=== PATIENT | female | born 1990 | race Two or more races ===

== ENCOUNTER 2016-08-25 10:41 | Emergency (ER) | payer OTHER ==
[~2016-08-25] VITALS: Ht 157.5 cm; Wt 49.9 kg
[2016-08-25 10:56] VITALS: BP 109/68
--- NOTE | 2016-08-25 11:07 | Emergency Room Report ---
History of Present Illness General Chief Complaint: Laceration Source: Patient Present Illness HPI sliced off piece of L thumb carrying out trash last night. Urgent care dressed , but still with bleeding today. Also with pain 6/10 - sharp. No numbness Last tet 7 years. 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 Last Menstrual Period: 07/26/16 Reviewed Nursing Documentation: PMH: Agreed, PSxH: Agreed Nursing Documentation-PMH Past Medical History: No Stated History Review of Systems Constitutional: Denies: fever Musculoskeletal: Reports: see HPI Skin: Reports: see HPI Psychiatric: Reports: anxiety Neurological: Denies: numbness, paresthesia Hematologic/Lymphatic: Reports: see HPI Physical Exam Vital Signs Date Time Temp Pulse Resp B/P Pulse Ox O2 Delivery O2 Flow Rate FiO2 08/25/16 10:45 98.1 71 14 109/68 100 Room Air Sp02 EP Interpretation: reviewed, normal General Appearance: well appearing, no apparent distress Head: normocephalic, atraumatic Eyes: bilateral eye PERRL ENT: hearing grossly normal, normal voice, moist mucus membranes Neck: full range of motion, supple Respiratory: no respiratory distress, speaking full sentences Cardiovascular #2: 2+ radial (L) - good capillary fill Musculoskeletal: normal range of motion Neurologic: alert, motor strength/tone normal, sensory intact Psychiatric: mood/affect normal Skin: other - avulsion ulnar side of thumb 1X2.5 bleeding Procedures Laceration/Wound Repair Laceration/Wound Repair : Consent: Verbal Wound Location: other - L thumb Wound's Depth, Shape: superficial, other - avulsed skin Wound Explored: clean Irrigated w/ Saline (ccs): 20 Anesthesia: 1% Lidocaine Wound Debrided: cauterized - hemostasis obtained Sterile Dressing Applied?: Yes - xeroform Splint Applied?: No - tube gauze Sling Applied?: Yes Patient Tolerated: Well Complications: None Medical Decision Making Diagnostic Impression: Primary Impression: Avulsion of skin of left thumb Qualified Codes: S61.002A - Unspecified open wound of left thumb without damage to nail, initial encounter ER Course Patient with continued bleeding avulsion of L thumb. Too wide and lack of tissue to suture. Needs cautery. Elect not to use silver nitrate. See procedure note. Tolerated well. Warned of still risk of bleed, though low. Patient stable for outpatient observation and treatment. Last Vital Signs Date Time Temp Pulse Resp B/P Pulse Ox O2 Delivery O2 Flow Rate FiO2 08/25/16 11:58 98.1 14 109/68 100 Room Air 08/25/16 10:45 71 Status: improved Disposition: HOME, SELF-CARE Condition: Improved Scripts Tramadol Hcl* (ULTRAM*) 50 Mg Tablet 50 MG ORAL Q6H Y for For Pain, #14 TAB 0 Refills Prov: Mekhi Robles M.D. 08/25/16 Mekhi Robles M.D. Aug 25, 2016 11:07
[2016-08-25] MEDS ORDERED: Lidocaine 1% MPF 10mg/ml 5ml INJ ONE (11:15)
[2016-08-25] MEDS ORDERED: TRAMADOL HCL50 MG ORAL (11:44)
[2016-08-25 11:58] VITALS: BP 109/68
== END 2016-08-25 11:58 | disposition home or self-care (01) ==
LOC: EMR 10:56
DX: S61.002A Unspecified open wound of left thumb without damage to nail, initial encounter (principal); W45.8XXA Other foreign body or object entering through skin, initial encounter; Y93.9 Activity, unspecified; Y92.9 Unspecified place or not applicable

== ENCOUNTER 2016-08-28 13:52 | Emergency (ER) | payer OTHER ==
[~2016-08-28] VITALS: Ht 157.5 cm; Wt 49.9 kg
[~2016-08-28 13:52] MED LIST: TRAMADOL HCL50 MG ORAL
[2016-08-28] MEDS ORDERED: NKM (14:23)
[2016-08-28 14:29] VITALS: BP 96/64
--- NOTE | 2016-08-28 14:45 | Emergency Room Report ---
History of Present Illness General Chief Complaint: Wound Recheck/Suture Removal Source: Patient Present Illness HPI 26-year-old female presents emergency department for wound recheck. Patient states she was seen here yesterday for laceration to the left thumb for which required cautery and medical provider instructed patient to follow up today. She denies fevers, increasing pain, erythema or continued bleeding. Patient denies taking blood thinning medications. Patient states she is up-to-date of vaccinations. She denies new trauma or fall. Patient denies numbness or tingling. Denies numbness tingling or loss of sensation or gross motor movements of the extremities, incontinence of bowel or bladder. Denies CP, Palpitations, LOC, AMS, dizziness, Changes in Vision, Sensation, paresthesias, or a sudden severe headache. Allergies: Coded Allergies: No Known Allergies (Unverified , 08/25/16) Patient History Past Medical History: see triage record Past Surgical History: none Pertinent Family History: none Last Menstrual Period: Current Now: No Immunizations: UTD Reviewed Nursing Documentation: PMH: Agreed, PSxH: Agreed Nursing Documentation-PMH Past Medical History: No Stated History Review of Systems All Other Systems: negative except mentioned in HPI Physical Exam Vital Signs Date Time Temp Pulse Resp B/P Pulse Ox O2 Delivery O2 Flow Rate FiO2 08/28/16 14:19 98.2 74 16 96/64 98 Room Air Sp02 EP Interpretation: reviewed, normal General Appearance: no apparent distress, alert, GCS 15, non-toxic Head: normocephalic, atraumatic Eyes: bilateral eye PERRL, bilateral eye normal inspection ENT: hearing grossly normal, normal pharynx, no angioedema, normal voice Neck: full range of motion, supple/symm/no masses Respiratory: lungs clear, normal breath sounds, speaking full sentences Cardiovascular #1: regular rate, rhythm, no edema, normal capillary refill Musculoskeletal: back normal, gait/station normal, normal range of motion, non- tender Neurologic: alert, oriented x3, responsive, motor strength/tone normal, sensory intact, speech normal Psychiatric: judgement/insight normal, memory normal, mood/affect normal Skin: normal color, no rash, warm/dry, well hydrated, wd healing/no infection noted - avulsion to the left thumb, no bleeding at this time., no erythema. Medical Decision Making PA Attestation Dr. sherwood is my supervising Physician whom patient management has been discussed with. Diagnostic Impression: Primary Impression: Encounter for wound re-check ER Course 26-year-old female presents emergency department for wound recheck. Patient states she was seen here yesterday for laceration to the left thumb for which required cautery and medical provider instructed patient to follow up today. She denies fevers, increasing pain, erythema or continued bleeding. Patient denies taking blood thinning medications. Patient states she is up-to-date of vaccinations. She denies new trauma or fall. Patient denies numbness or tingling. Denies numbness tingling or loss of sensation or gross motor movements of the extremities, incontinence of bowel or bladder. Denies CP, Palpitations, LOC, AMS, dizziness, Changes in Vision, Sensation, paresthesias, or a sudden severe headache. - pt. recently seen for thumb avulsion which required electrocautery. Ddx considered but are not limited to cellulitis, dehiscence, un-controlled bleeding just to name a few. Vital signs: are WNL, pt. is afebrile H&PE are most consistent with healing previously repaired cauterized thumb avulsion of the left thumb. ORDERS: none required at this time, the diagnosis is clinical ED INTERVENTIONS: -wound examined- no signs of infection, hemostasis is consistent at this time. - Bacitracin and Sterile dressing applied. d/w pt. to continue with wound care at home ( pt. given sterile supplies) and to look for signs of infection . recommended PCP follow up in 3-5 days. DISCHARGE: At this time pt. is stable for d/c to home. Will provide printed patient care instructions, and any necessary prescriptions. Care plan and follow up instructions have been discussed with the patient prior to discharge. Last Vital Signs Date Time Temp Pulse Resp B/P Pulse Ox O2 Delivery O2 Flow Rate FiO2 08/28/16 14:19 98.2 74 16 96/64 98 Room Air Disposition: HOME, SELF-CARE Condition: Stable Scripts Bacitracin/Polymyxin B Sulfate (BACITRACIN-POLYMYXIN OINTMENT) 28.35 Gm Oint...g. 1 APPLIC TP BID, #28.3 GM Prov: Shelly Rubi 08/28/16 Patient Instructions: Wound Check Additional Instructions: Take medications as directed. Follow up with a Primary Care Provider in 3-5 days, even if your symptoms have resolved. --Please review list of primary care clinics, if you do not already have a primary care provider Return sooner to ED if new symptoms occur, or current symptoms become worse. - Please note that this Emergency Department Report was dictated using LIN TVspreader technology software, occasionally this can lead to erroneous entry secondary to interpretation by the dictation equipment. Shelly Rubi Aug 28, 2016 14:45
[2016-08-28] MEDS ORDERED: BACITRACIN-P28.35 GM TP (15:14)
[2016-08-28] MEDS ORDERED: Bacitracin Oint UD TOPIC ONE (15:15)
[2016-08-28 15:19] VITALS: BP 96/64
== END 2016-08-28 15:19 | disposition home or self-care (01) ==
LOC: EMR 14:35
DX: S61.012D Laceration without foreign body of left thumb without damage to nail, subsequent encounter (principal)
CPT/HCPCS: 99283